=== PATIENT | female | born 2005 | race Caucasian/White ===

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

== ENCOUNTER → 2025-02-11 | Outpatient (REF) | payer OTHER ==
[2025-02-11 15:00] LABS: BASO # 0.0 10^3/uL (0.0-0.2); BASO % 0.3 % (0.0-1.0); CALCIUM LEVEL 9.8 MG/DL (8.5-10.1); CARBON DIOXIDE LEVEL 29 MMOL/L (20-31); CHLORIDE LEVEL 104 MMOL/L (98-107); CREATININE FOR GFR 0.62 MG/DL (0.55-1.30); EOS # 0.4 10^3/uL (0.0-0.5); EOS % 7.5 % (0.0-3.0); GLOMERULAR FILTRATION RATE > 90.0 (>60); LYMPH # 1.7 10^3/uL (1.5-5.0); LYMPH % 29.0 % (24.0-44.0); MONO # 0.3 10^3/uL (0.0-0.8); MONO % 5.7 % (2.0-8.0); NEUTROPHILS # 3.3 10^3/uL (1.5-8.5); NEUTROPHILS % 57.3 % (36.0-66.0); PLATELET COUNT, AUTOMATED 298 10^3/uL (150-450); POTASSIUM SERUM 4.2 MMOL/L (3.5-5.1); SODIUM LEVEL 143 MMOL/L (136-145)
== END ==
LOC: M LAB REF 14:25
PROVIDERS: ATTEND Nurse Practitioner Family
DX: Z68.22 Body mass index [BMI] 22.0-22.9, adult (principal); Z11.9 Encounter for screening for infectious and parasitic diseases, unspecified